=== PATIENT | female | born 1995 | race Asian ===

== ENCOUNTER 2022-04-16 01:26 | Emergency (ER) | payer BC ==
[~2022-04-16] VITALS: Ht 167.6 cm; Wt 81.6 kg
--- NOTE | 2022-04-16 01:34 | NUR ---
pt ambulated to room 4a pt c/o chest pain since yesterday morning.
--- NOTE | 2022-04-16 01:36 | NUR ---
Dr. Bobby at bedside for MSE.
--- NOTE | 2022-04-16 02:07 | NUR ---
Patient discharged to home in stable condition. Written and verbal after care instructions given. Patient verbalizes understanding of instructions. Stressed follow up or return to ER for worsening s/s.
[2022-04-16 02:08] VITALS: BP 106/70
== END 2022-04-16 02:08 | disposition home or self-care (01) ==
LOC: ER 01:33
DX: R07.89 Other chest pain (principal); I45.10 Unspecified right bundle-branch block
CPT/HCPCS: 93005; A4663